=== PATIENT | female | born 1960 | race Two or more races ===

== ENCOUNTER 2019-04-24 19:45 | Inpatient (IN) | payer MEDICAID, OTHER ==
[~2019-04-24] VITALS: Ht 152.4 cm; Wt 62.6 kg
[2019-04-24] MEDS: MORPHINE SULFATE 4 MG/ML CPJ (NOT FOR IM USE) IV STA ×2 (21:18→21:56)
[2019-04-24] MEDS ORDERED: ONDANSETRON HCL 4MG/2ML INJ IV STA (21:18)
[2019-04-24] MEDS ORDERED: HYDRALAZINE 20MG/ML VIAL IV ONE (21:30)
[2019-04-24 22:01] LABS: BASOPHILS % 0.9 % (0.0-2.0); EOSINOPHILS % 12.5 % (0.0-5.0); HEMATOCRIT. 43.3 % (36.0-48.0); LYMPHOCYTES % 39.7 % (20.0-50.0); MEAN CORPUSCULAR VOLUME 86.8 fL (81.0-99.0); MEAN PLATELET VOLUME 9.4 fl (7.4-10.4); MONOCYTES % 4.4 % (2.0-8.0); NEUTROPHILS % 42.5 % (40.0-76.0); PLATELET 122 x1000/uL (130-400); RED BLOOD CELL COUNT 4.99 mill/uL (4.2-5.4); RED CELL DISTRIBUTION WIDTH 12.7 % (11.6-14.6)
[2019-04-24 22:07] LABS: CHLORIDE 105 mEq/L (98-107); PARTIAL THROMBOPLASTIN TIME 24.9 sec (23.4-31.0); PROTHROMBIN TIME 10.7 sec (9.6-11.0)
[2019-04-24 22:13] LABS: ETHANOL BLOOD < 10 mg/dL
[2019-04-24 22:17] LABS: CREATINE KINASE 116 IU/L (26-192); CREATINE KINASE MB FRACTION 1.5 ng/mL (0.5-3.6)
[2019-04-24] MEDS ORDERED: HYDROCODONE/ACETAMINOPHEN 5/325MG TABLET PO ONE (22:30)
[2019-04-24 23:27] LABS: CLARITY URINE CLEAR (CLEAR); COLOR URINE YELLOW (YELLOW); KETONES URINE NEGATIVE (NEGATIVE); LEUKOCYTE ESTERASE URINE TRACE (NEGATIVE); NITRITE URINE NEGATIVE (NEGATIVE); OCCULT BLOOD URINE NEGATIVE (NEGATIVE); PH URINE 7.5 (4.5-8.0); PROTEIN URINE NEGATIVE (NEGATIVE); SPECIFIC GRAVITY URINE 1.003 (1.005-1.030); UROBILINOGEN URINE 0.2 E.U./dL (0.2-1.0)
[2019-04-25 00:03] LABS: *AMPHETAMINES SCREEN URINE NEGATIVE (NEGATIVE); *BARBITURATES SCREEN URINE NEGATIVE (NEGATIVE); *BENZODIAZEPINES SCREEN URINE NEGATIVE (NEGATIVE); *COCAINE SCREEN URINE NEGATIVE (NEGATIVE); CANNABINOID URINE SCREEN NEGATIVE (NEGATIVE); METHADONE URINE SCREEN NEGATIVE (NEGATIVE); OPIATES URINE SCREEN NEGATIVE (NEGATIVE); PHENCYCLIDINE URINE SCREEN NEGATIVE (NEGATIVE)
[2019-04-25] MEDS ORDERED: ASPIRIN 81MG TABLET PO ONE (01:45)
[2019-04-25] MEDS ORDERED: HYDRALAZINE 20MG/ML VIAL IV ONE (01:45)
[2019-04-25] MEDS ORDERED: CLONIDINE 0.1MG TABLET PO PRN (07:45)
[2019-04-25] MEDS ORDERED: ONDANSETRON HCL 4MG/2ML INJ IV PRN (07:45)
[2019-04-25] MEDS ORDERED: DIPHENHYDRAMINE 50MG/ML VIAL IV PRN (07:45)
[2019-04-25] MEDS ORDERED: ACETAMINOPHEN 325MG TABLET PO PRN (07:45)
[2019-04-25] MEDS ORDERED: IPRATROPIUM/ALBUTEROL 0.5-3(2.5)MG/3ML NEB HHN PRN (07:45)
[2019-04-25] MEDS: HYDROCODONE/ACETAMINOPHEN 5/325MG TABLET PO PRN (12:34)
[2019-04-25 14:00] VITALS: BP 128/54
[2019-04-25 14:10] VITALS: BP 128/54
[2019-04-25 16:00] VITALS: BP 158/75
[2019-04-25] MEDS ORDERED: MORPHINE SULFATE 2 MG/ML CPJ (NOT FOR IM USE) IV PRN (16:45)
[2019-04-25 16:50] LABS: VITAMIN B12 SERUM 1377 pg/mL (211-911)
[2019-04-25 16:57] LABS: FOLIC ACID (FOLATE) SERUM > 20.00 ng/mL (>5.38)
[2019-04-25] MEDS: LORAZEPAM 1MG TABLET PO PRN (17:13)
[2019-04-25] MEDS: DOCUSATE SODIUM 100MG CAPSULE PO SCH (18:00)
[2019-04-25 20:00] VITALS: BP 136/64
[2019-04-25] MEDS: ATORVASTATIN CALCIUM 20MG TABLET PO SCH (21:11)
[2019-04-25] MEDS ORDERED: DEXTROSE 50% WATER 50ML SYRINGE IV PRN (22:30)
[2019-04-26] VITALS (8 sets, daily range): BP systolic 133–172; BP diastolic 51–70
[2019-04-26] MEDS: BLOOD SUGAR DIAGNOSTIC STRIP TEST SCH ×4 (05:40→21:09)
[2019-04-26 06:45] LABS: CHLORIDE 106 mEq/L (98-107)
[2019-04-26 06:48] LABS: HEMATOCRIT. 37.8 % (36.0-48.0); HEMOGLOBIN. 13.2 g/dL (12.0-16.0); MEAN CORPUSCULAR HEMOGLOBIN 30.4 pg (28.0-32.0); MEAN CORPUSCULAR VOLUME 86.8 fL (81.0-99.0); MEAN PLATELET VOLUME 9.9 fl (7.4-10.4); PLATELET 181 x1000/uL (130-400); RED BLOOD CELL COUNT 4.35 mill/uL (4.2-5.4); RED CELL DISTRIBUTION WIDTH 12.9 % (11.6-14.6)
[2019-04-26 06:56] LABS: LDL CHOLESTEROL 81 mg/dL (5-100)
[2019-04-26 06:59] LABS: HDL CHOLESTEROL 49 mg/dL (40-59)
[2019-04-26] MEDS: DOCUSATE SODIUM 100MG CAPSULE PO SCH ×2 (09:13→17:00)
[2019-04-26] MEDS: INSULIN LISPRO 100 UNITS/ML SUBCUT SCH ×4 (09:14→21:08)
[2019-04-26] MEDS: LORAZEPAM 1MG TABLET PO PRN (09:17)
[2019-04-26] MEDS: HYDROCODONE/ACETAMINOPHEN 5/325MG TABLET PO PRN (10:41)
[2019-04-26 12:51] LABS: PLATELET ESTIMATE NORMAL
[2019-04-26] MEDS ORDERED: ATOR20TA PO (16:11)
[2019-04-26] MEDS ORDERED: AMLO5TAB88 MT (16:11)
[2019-04-26] MEDS: ATORVASTATIN CALCIUM 20MG TABLET PO SCH (21:03)
== END 2019-04-26 22:05 | disposition home or self-care (01) | DRG 199 ==
LOC: ER 19:45 → EDBEDREQ 21:26 → EDBEDREQTM 04-25 01:46 → EDBEDREQDT 04-25 01:46 → EDBEDREQ 04-25 01:46 → ENRESERV 04-25 12:48 → 7WST 04-25 13:41
PROVIDERS: ADMIT Internal Medicine; ATTEND Internal Medicine
DX: I16.1 Hypertensive emergency (principal); I11.9 Hypertensive heart disease without heart failure; I69.354 Hemiplegia and hemiparesis following cerebral infarction affecting left non-dominant side; E11.9 Type 2 diabetes mellitus without complications; E78.5 Hyperlipidemia, unspecified; M06.9 Rheumatoid arthritis, unspecified; M54.10 Radiculopathy, site unspecified
CPT/HCPCS: 36415; 70551; 71045; 74018; 80053; 80061; 80305; 80320; 81003; 82550; 82553; 82607; 82746; 82962; 83880; 84443; 84484; 85025; 93005; 93970; 96374; 99285; J0360; J1815; J2270; J2405; G0480